=== PATIENT | female | born 1960 | race Caucasian/White ===

== ENCOUNTER → 2016-05-27 | Outpatient (CLI) | payer BC ==
[~2016-05-27] MED LIST: AMOX875T PO; ASPI-435 PO; ASPI81TA28 PO; B-COTAB18 PO; CETI10TA84 PO; EST1 PO; FLUO20CA35 PO; FLUO20CA36 PO; FLUO40CA8 PO; HYDR-5688 PO; OMEG10007 PO; XNX25 PO
--- NOTE | 2016-05-27 16:18 | MAMMOGRAPHY REPORT ---
THIS REPORT HAS BEEN AMENDED. BILATERAL DIGITAL SCREENING MAMMOGRAM TOMOSYNTHESIS WITH CAD: 05/27/2016 CLINICAL HISTORY: Routine screening. Patient has no complaints. TECHNIQUE: Breast tomosynthesis in addition to standard 2D mammography was performed. Current study was also evaluated with a Computer Aided Detection (CAD) system. COMPARISON: No prior exams were available for comparison. BREAST COMPOSITION: There are scattered areas of fibroglandular density in both breasts. FINDINGS: There are a few benign rim calcifications within the left breast. No suspicious mass, arc hitectural distortion or cluster of microcalcifications is seen. IMPRESSION: ACR BI-RADS CATEGORY 1: NEGATIVE There is no mammographic evidence of malignancy. A 1 year screening mammogram is recommended. The p atient will receive written notification of the results. Approximately 10% of breast cancers are not detected with mammography. A negative mammographic repor t should not delay biopsy if a clinically suggestive mass is present. Kathi Ca M.D. ay/:05/27/2016 16:06:22 Adapted Physical Education Specialist: Lilia SEQUEIRA(Da)([place]ush), [facility] letter sent: Normal 05/05 BI-RADS Code: ACR BI-RADS Category 1: Negative AMENDMENT: 06/03/2016 Kathi Ca M.D. Prior outside mammograms from [facility] dated 03/25/2011, 03/30/2012, 04/12/2013, 5 and 05/17/2015 became available for review. The rim calcifications in the left breast are stable compared to the outside exams. No new suspicious mass, architectural distortion, developing asymmet ryan or cluster of suspicious microcalcifications is seen. Recommend follow-up in 1 year for next r outine screening exam. Amended BI-RADS: ACR BI-RADS Category 2: Benign letter sent: Normal 05/05
== END | disposition home or self-care (01) ==
LOC: C.MAMM 09:28
PROVIDERS: ATTEND Family Medicine
DX: Z12.31 Encounter for screening mammogram for malignant neoplasm of breast (principal)

== ENCOUNTER 2016-12-24 06:46 | Observation (INO) | payer BC ==
[2016-12-24] VITALS (9 sets, daily range): BP systolic 129–157; BP diastolic 77–95; PULSE 64–80; TEMP 36.4–36.9; O2SAT 92–98; Ht 165.1 cm; Wt 78.5 kg
[~2016-12-24] VITALS: Ht 165.1 cm; Wt 78.5 kg
[~2016-12-24 06:46] MED LIST changes: -AMOX875T PO; +CEFUROXIME IV 1,500 MG in DEXTROSE 5% 100ML IV SCH; -FLUO20CA35 PO; -FLUO40CA8 PO; -HYDR-5688 PO; +LACTATED RINGER'S 1000ML 1,000 ML IV SCH
[2016-12-24] MEDS ORDERED: FLUO40CA8 PO (07:05)
[2016-12-24] MEDS ORDERED: FLUO20CA35 PO (07:05)
[2016-12-24] MEDS ORDERED: MIDAZOLAM HCL 1 MG/ML 2ML VIAL ONE (07:22)
[2016-12-24] MEDS ORDERED: PROPOFOL IV EMULSION 10 MG/ML 20 ML VIAL IV ONE (07:22)
[2016-12-24] MEDS ORDERED: LIDOCAINE HCL 2% 2 ML VIAL (20MG/ML) ONE (07:22)
[2016-12-24] MEDS ORDERED: SUCCINYLCHOLINE 100MG/5ML SYR IV ONE (07:22)
[2016-12-24] MEDS ORDERED: FENTANYL CITRATE INJ 50 MCG/1 ML 2 ML VIAL ONE ×3 (07:22→09:41)
[2016-12-24] MEDS ORDERED: ONDANSETRON INJ 2 MG/ML 2 ML VIAL ONE (07:22)
[2016-12-24] MEDS ORDERED: DEXAMETHASONE SOD INJ 4 MG/ML VIAL ONE (07:22)
[2016-12-24] MEDS ORDERED: CISATRACURIUM BESYLATE IV SOLN 2 MG/ML 10 ML VIAL ONE (07:22)
[2016-12-24] MEDS ORDERED: BUPIVACAINE 0.5 % 5 MG/1 ML MPF 30ML VIAL ONE (07:59)
--- NOTE | 2016-12-24 08:08 | History & Physical Bridge Note ---
H&P Re-Evaluation Bridge Note: I have examined the patient, reviewed the History & Physical and in the interval since the performance of the History & Physical I have noted the following changes of clinical significance: No changes noted
[2016-12-24] MEDS ORDERED: GLYCOPYRROLATE INJ 0.2 MG/ML VIAL ONE (08:53)
[2016-12-24] MEDS ORDERED: NEOSTIGMINE METHYLSULFATE 5 MG/5 ML SYR ONE (08:53)
[2016-12-24] MEDS ORDERED: NALOXONE HCL 0.4 MG/1 ML VIAL/CARP IV PRN (09:00)
[2016-12-24] MEDS ORDERED: ATROPINE SULFATE 0.1 MG/ML 5ML SYR IV PRN (09:00)
[2016-12-24] MEDS ORDERED: FENTANYL CITRATE INJ 50 MCG/1 ML 2 ML VIAL IV PRN (09:00)
[2016-12-24] MEDS ORDERED: ONDANSETRON INJ 2 MG/ML 2 ML VIAL IV PRN ×2 (09:00→09:30)
[2016-12-24] MEDS ORDERED: LABETALOL HCL IV 5 MG/ML 20ML IV PRN (09:00)
[2016-12-24] MEDS ORDERED: EpHEDrine SULFATE INJ 50 MG/ML AMP IV PRN (09:00)
[2016-12-24] MEDS ORDERED: PROMETHAZINE HCL INJ 12.5 MG in SODIUM CHLORIDE 0.9% 50ML 50 ML IV PRN ×2 (09:00→10:00)
[2016-12-24] MEDS ORDERED: FLUMAZENIL 0.1 MG/1 ML 10 ML VIAL IV PRN (09:00)
--- NOTE | 2016-12-24 09:20 | [facility] Operative Report ---
Operative Report Operative Date Dec 24, 2016. Pre-Operative Diagnosis Cholelithiasis, Biliary Colic Post-Operative Diagnosis same as pre-operative Procedure(s) Performed Laparoscopic Cholecystectomy Surgeon Dr. Delfino Gomez Analysis Mgr Surgeon(s) Fidel Sandy PA-C Estimated Blood Loss 10 cc Findings severe acute/ chronic cholecystitis, adhesions Specimens A: Gallbladder and contents Anesthesia gen Complication(s) None Disposition Recovery Room / PACU I attest to the content of the Intraoperative Record and any orders documented therein. Any exceptions are noted below.
[2016-12-24] MEDS ORDERED: HYDR-5688 PO (09:28)
[2016-12-24] MEDS ORDERED: AMOX875T PO (09:28)
[2016-12-24] MEDS ORDERED: HYDROmorphone INJ 0.5 MG/0.5 ML SYR IV PRN (09:30)
[2016-12-24] MEDS ORDERED: HYDROCODONE/ACETAMOPHEN 5/325MG TAB PO PRN (09:30)
[2016-12-24] MEDS ORDERED: PROMETHAZINE HCL INJ 25 MG in SODIUM CHLORIDE 0.9% 50ML 50 ML IV PRN (09:30)
[2016-12-24] MEDS ORDERED: HYDROmorphone INJ 1 MG/ML SYR IV PRN (09:30)
--- NOTE | 2016-12-24 09:31 | Discharge Instructions ---
Discharge Instructions Date of Service Dec 24, 2016. Admission Reason for Admission: Cholelithiasis, Biliary Colic Discharge Discharge Diagnosis / Problem: acute/chronic cholecystitis Discharge Goals Goal(s): Decrease discomfort, Improve function, Improve disease control Activity Recommendations Activity Limitations: as noted below Lifting Limitations: no more than 25 pounds Exercise/Sports Limitations: until after follow-up appointment May Resume Sexual Activity: when tolerated Shower/Bathe: tomorrow Driving or Machine Use: resume 3 days after discharge SPECIAL CARE INSTRUCTIONS: * Cover incisions and change daily for comfort/drainage. * may leave uncovered at sites with dermabond * May use ibuprofen for pain as tolerated. * Expect some swelling and bruising. Call your doctor if: * Temperature above 101 degrees * Pain not relieved by pain medicine ordered * There is increased drainage or redness from any incision * You have any unanswered questions or concerns [phone]. FOLLOW UP VISIT: If not already scheduled, please call the office for a follow-up visit. for next week- some suture removal OFFICE PHONE NUMBER: Dr. Gomez Office . Current Hospital Diet Patient's current hospital diet: Regular Diet Discharge Diet Recommended Diet: Regular Diet Procedures Procedures Performed: Laparoscopic Cholecystectomy Pending Studies Studies pending at discharge: no Medical Emergencies . Who to Call and When: Medical Emergencies: If at any time you feel your situation is an emergency, please call 911 immediately. . Non-Emergent Contact Non-Emergency issues call your: Primary Care Provider, Surgeon . "Provider Documentation" section prepared by Delfion Gomez. . VTE Core Measure Inpt VTE Proph given/why not?: SCD's
[2016-12-24] MEDS ORDERED: IV FLUIDS COMPLETED PRN (09:45)
--- NOTE | 2016-12-24 09:45 | OPERATIVE REPORT ---
DATE OF OPERATION: 12/24/2016 NAME OF OPERATION: Laparoscopic cholecystectomy with lysis of adhesions. STAFF SURGEON: Dr. Delfino Gomez. CASE MGR: Fidel Sandy PA-C ANESTHESIA: General. FINDINGS: The patient had significant adhesions to the gallbladder and a severely thickened gallbladder, all consistent with acute and chronic cholecystitis. DESCRIPTION OF PROCEDURE: The patient was brought into the operating room and placed on the operating table in the supine position. Her abdomen was prepped and draped in the usual fashion. Using 0.5% plain Marcaine, all incisions were anesthetized. Incision was made above the umbilicus, carrying dissection down to the fascia, placing a Veress needle, and producing pneumoperitoneum. An 11-mm port was placed at this level and under visualization, three 5-mm ports were placed, 1 cephalad and 2 laterally. The patient had significant adhesions to the gallbladder and liver. These were taken down and then the gallbladder retracted. It was severely thickened consistent with acute and chronic cholecystitis. Dissection was carried out at the alisson hepatis, identifying the cystic duct, which was very small. It was clipped and then transected. There was actually a small stone within the duct. Cystic artery was identified, clipped and transected, and then the gallbladder dissected away from the liver bed. There was severe chronic scar tissue in the posterior wall. Gallbladder was placed into an Endobag and then after appropriate hemostasis and irrigation, the Endobag was removed through the umbilical site. I did have to enlarge the fascial defect to remove the gallbladder. The fascia was then closed using interrupted 0 Vicryl suture, subcutaneous tissue reapproximated using 0 Vicryl suture, and then the skin reapproximated at the umbilicus and cephalad using 4-0 nylon suture. The other 2 sites closed using subcuticular 4-0 Monocryl and Dermabond. The patient was transferred to recovery room in stable condition. I attest to the content of the Intraoperative Record and any orders documented therein. Any exception s are noted below.
--- NOTE | 2016-12-24 10:41 | Anesthesiology Progress Note ---
Anesthesia Post Op Note Date & Time Dec 24, 2016 at 10:41 Vital Signs Pain Intensity: 4 Vital Signs Past 12 Hours Date Time Temp Pulse Resp B/P (MAP) Pulse Ox O2 Delivery O2 Flow Rate FiO2 12/24/16 10:05 36.6 71 16 147/91 98 Nasal Cannula 2 12/24/16 09:55 68 15 141/83 97 Nasal Cannula 2 12/24/16 09:45 68 16 147/88 100 Oxymask 10 12/24/16 09:35 73 16 143/87 100 Oxymask 10 12/24/16 09:27 37.1 89 16 132/104 99 Oxymask 10 12/24/16 07:09 36.7 80 16 141/77 (98) 98 Room Air Notes Mental Status: alert / awake / arousable, participated in evaluation Pt Amnestic to Procedure: Yes Nausea / Vomiting: adequately controlled Pain: adequately controlled Airway Patency, RR, SpO2: stable & adequate BP & HR: stable & adequate Hydration State: stable & adequate Anesthetic Complications: no major complications apparent
[2016-12-24] MEDS: HYDROCODONE/ACETAMOPHEN 5/325MG TAB PO PRN ×2 (11:02→23:10)
[2016-12-24] MEDS: LACTATED RINGER'S 1000ML 1,000 ML IV SCH ×2 (11:03→23:10)
[2016-12-24] MEDS: CEFUROXIME IV 1,500 MG in DEXTROSE 5% 100ML 100 ML IV SCH (15:39)
[2016-12-25] MEDS: CEFUROXIME IV 1,500 MG in DEXTROSE 5% 100ML 100 ML IV SCH ×2 (00:34→07:58)
[2016-12-25 03:13] VITALS: BP 127/72; PULSE 65; TEMP 36.9; O2SAT 95
[2016-12-25 06:17] LABS: HEMATOCRIT 34.9 % (37-47); MEAN CELL VOLUME 87.5 fL (80-100); MEAN CORPUSCULAR HEMOGLOBIN 29.6 pg (25-34); MEAN CORPUSCULAR HGB CONC 33.8 g/dl (32-36); PLATELET COUNT 310 K/uL (130-400); RED BLOOD COUNT 3.99 M/uL (4.2-5.4); WHITE BLOOD COUNT 9.24 K/uL (4.8-10.8)
--- NOTE | 2016-12-25 06:28 | Discharge Summary ---
Discharge Summary Date of Service Dec 25, 2016. Discharge Summary Admission Date: Dec 24, 2016 at 09:24 Discharge Date: Dec 25, 2016 Primary Diagnosis: acute cholecystitis Procedures: lap michelle Discharge Instructions Last Recorded Wt (Kilograms): 78.500 Allergies: Coded Allergies: Morphine (Verified Allergy, Unknown, SHORTNESS OF BREATH, 12/24/16) PER PATIENT, NORCO AND DILAUDID ARE OKAY Special Care: Call your doctor if: * Temperature above 101 degrees * Pain not relieved by pain medicine ordered * There is increased drainage or redness from any incision * You have any unanswered questions or concerns. Avoid all tobacco products. If you need help to stop smoking, call [place]'s FREE QUITLINE at . This is a free call. Admission Information Admission HPI: pt w/ recurrent RUQ pain, N/V- recent ER visit Hospital Course pt underwent Lap michelle 12/24/16- no acute problems postop d/c 12/25/16- f/u in office next week Total time spent on discharge = This includes examination of the patient, discharge planning, medication reconciliation, and communication with other providers.
[2016-12-25 06:51] LABS: BUN/CREATININE RATIO 15.7 (10-20); CALCIUM 8.9 mg/dl (8.5-10.1); CREATININE 0.8 mg/dl (0.60-1.20); POTASSIUM 3.7 mmol/L (3.5-5.1)
[2016-12-25 06:54] VITALS: BP 127/76; PULSE 71; TEMP 36.8; O2SAT 94
[2016-12-25 06:54] LABS: ALB/GLOB RATIO 0.9 (0.9-2)
[2016-12-25] MEDS ORDERED: FLUOXETINE HCL 20 MG CAP PO SCH (09:00)
--- NOTE | 2016-12-25 09:02 | Anesthesiology Progress Note ---
Anesthesia Post Op Note Date & Time Dec 25, 2016 at 09:01 Vital Signs Pain Intensity: 2 Vital Signs Past 12 Hours Date Time Temp Pulse Resp B/P (MAP) Pulse Ox O2 Delivery O2 Flow Rate FiO2 12/25/16 07:10 Room Air 12/25/16 06:54 36.8 71 19 127/76 (93) 94 Room Air 12/25/16 03:13 36.9 65 14 127/72 (90) 95 Room Air 12/25/16 00:30 Room Air 12/24/16 23:11 36.9 68 14 129/77 (94) 92 Room Air Notes Mental Status: alert / awake / arousable Pt Amnestic to Procedure: Yes Nausea / Vomiting: adequately controlled Pain: adequately controlled Airway Patency, RR, SpO2: stable & adequate BP & HR: stable & adequate Hydration State: stable & adequate
[2016-12-25 09:48] VITALS: BP 127/76; PULSE 71; TEMP 36.8; O2SAT 94
== END 2016-12-25 10:21 | disposition home or self-care (01) ==
LOC: C.ACU 06:46 → C.MSN 09:24 → ENRESERV 09:51
PROVIDERS: ADMIT Surgery; ATTEND Surgery
DX: K80.20 Calculus of gallbladder without cholecystitis without obstruction (principal); K80.50 Calculus of bile duct without cholangitis or cholecystitis without obstruction; F41.9 Anxiety disorder, unspecified; F32.9 Major depressive disorder, single episode, unspecified; E78.00 Pure hypercholesterolemia, unspecified; Z90.89 Acquired absence of other organs; Z90.710 Acquired absence of both cervix and uterus; Z98.51 Tubal ligation status; Z80.3 Family history of malignant neoplasm of breast; Z83.3 Family history of diabetes mellitus; Z82.49 Family history of ischemic heart disease and other diseases of the circulatory system; E78.5 Hyperlipidemia, unspecified

== ENCOUNTER 2017-12-02 12:59 | Emergency (ER) | payer BC, OTHER ==
[~2017-12-02] VITALS: Ht 162.6 cm; Wt 85.0 kg
[~2017-12-02 12:59] MED LIST changes: -ASPI-435 PO; -ASPI81TA28 PO; -CEFUROXIME IV 1,500 MG in DEXTROSE 5% 100ML IV SCH; -EST1 PO; +FLUO20CA35 PO; -FLUO20CA36 PO; +FLUO40CA8 PO; -LACTATED RINGER'S 1000ML 1,000 ML IV SCH; -XNX25 PO
[2017-12-02 13:02] VITALS: TEMP 36.9
[2017-12-02] MEDS ORDERED: SODIUM CHLORIDE 0.9% 1000ML 1,000 ML IV SCH (13:15)
--- NOTE | 2017-12-02 13:23 | EMERGENCY ROOM VISIT NOTE ---
History Report prepared by Marvin: Frantz Noel Under the Supervision of: Dr. Marilou Connell D.O. First contact with patient: 13:02 Chief Complaint: UNRESPONSIVE Stated Complaint: CONFUSION, UNRESPONSIVE History of Present Illness The patient is a 57 year old female who presents to the Emergency Room via private vehicle from [place] due to worsening stroke-like symptoms that began 3 and a half hours ago. Nurse states the patient felt like "deadweight" as they brought her out the car. Friend states when the patient arrived at her house 3 and a half hours ago and she noticed she wasn't her "normal" self. She states the patient was acting forgetful and repeating comments and a story she had dreamed about last night for an hour and a half. She states the patient then told her she felt like she was in a "fog". Friend states she then took the patient's blood pressure which was "160/90". She states she became concerned and decided to bring the patient to the ER. She states the patient's symptoms have worsened since coming to the ER. Friend adds the patient's is on the way. She adds the patient has been acting very confused and states she has never seen her like this before. Friend denies any facial droop, slurred speech , or motor deficits. Friend adds the patient has a history two suicide attempts via overdose. Past medical history includes depression which she sees a psychiatrist for. She denies the patient ever perforating before. Patient feels lightheaded, dizzy, weak, and nauseas. Patient denies ever feeling this weak before. Patient denies abdominal pain, chest pain, headaches, or recent sicknesses. Source of History: patient, EMS, nursing staff Onset: 3 and a half hours ago Position: head Quality: other (Stroke-like) Timing: worsening Modifying Factors (Relieving): other (None) Associated Symptoms: + nausea, + weakness, No headache, No chest pain, No abdominal pain Note: Positive dizziness and lightheadedness. Negative facial droop and slurred speech. Review of Systems See HPI for pertinent positives & negatives. A total of 10 systems reviewed and were otherwise negative. Past Medical & Surgical Medical Problems: (1) Acute cholecystitis Family History Patient reports no known family medical history. Social History Smoking Status: Never Smoker Marital Status: Housing Status: lives with family Current/Historical Medications Scheduled B-Complex Vitamins (Vitamin B Complex), 1 TAB PO DAILY Cetirizine (Zyrtec), 10 MG PO DAILY Cholecalciferol (Vitamin D3), 2,000 UNITS PO DAILY Fish Oil (Freeland-3), 1 CAP PO DAILY Fluoxetine (Prozac), 60 MG PO DAILY Allergies Coded Allergies: Morphine (Verified Allergy, Unknown, SHORTNESS OF BREATH, 12/24/16) PER PATIENT, NORCO AND DILAUDID ARE OKAY Time Last Known Well 0930 Stroke t-PA Criteria Reviewed Does NOT meet criteria for t-PA Reason t-PA Not Given Treatment not indicated Physical Exam Vital Signs Date Time Temp Pulse Resp B/P (MAP) Pulse Ox O2 Delivery O2 Flow Rate FiO2 12/02/17 17:59 65 16 134/76 96 Room Air 12/02/17 17:12 74 16 142/101 96 Room Air 12/02/17 15:30 71 16 148/96 98 Room Air 12/02/17 14:30 76 18 158/93 98 Room Air 12/02/17 13:35 100 Room Air 12/02/17 13:26 72 18 151/95 100 Room Air 12/02/17 13:04 81 12/02/17 13:02 36.9 83 18 160/109 100 Room Air Physical Exam GENERAL: alert, well appearing, well nourished, no distress, non-toxic EYE EXAM: normal conjunctiva, PERRL and EOM's grossly intact OROPHARYNX: no exudate, no erythema, lips, buccal mucosa, and tongue normal and mucous membranes are moist NECK: supple, no nuchal rigidity, no adenopathy, non-tender LUNGS: Clear to auscultation. Normal chest wall mechanics HEART: no murmurs, S1 normal and S2 normal ABDOMEN: abdomen soft, non-tender, normo-active bowel sounds, no masses, no rebound or guarding. BACK: Back is symmetrical on inspection and there is no deformity, no midline tenderness, no CVA tenderness. SKIN: no rashes and no bruising UPPER EXTREMITIES: upper extremities are grossly normal. LOWER EXTREMITIES: No pitting edema. NEURO EXAM: No strength/flaccid in lower and upper extremities. Opens eyes to voice and command. Nonverbal. Will nod and shake head to answer simple questions. Medical Decision & Procedures ER Provider Diagnostic Interpretation: Radiology results have been interpreted by the radiologist and reviewed by me. HEAD WITHOUT CONTRAST (CT) CT DOSE: 614.27 mGy.cm HISTORY: altered: stroke alert TECHNIQUE: Multiaxial CT images of the head were performed without the use of intravenous contrast. A dose lowering technique was utilized adhering to the principles of ALARA. Comparison: None. Findings: The paranasal sinuses and mastoid air cells are clear. The calvarium and skull base are intact. The ventricles and sulci are within normal limits. There is no mass, hematoma, midline shift, or acute infarct. 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 Minimal frontal atrophy. No acute intracranial hemorrhage. Impression: No acute intracranial abnormality. The above report was generated using voice recognition software. It may contain grammatical, syntax or spelling errors. Electronically signed by: Gatito Cox M.D. 12/02/2017 1:24 PM MR ANGIOGRAM OF THE BRAIN CLINICAL HISTORY: Subacute infarct. COMPARISON STUDY: MRI of the brain performed concurrently on 12/02/2017. TECHNIQUE: 3-D [id number] MR angiography of the intracranial circulation is performed. 3-D tumble views are created and assessed. IV contrast was not administered for this examination. FINDINGS: The internal carotid arteries are widely patent bilaterally, as are the anterior and middle cerebral arteries. The vertebrobasilar system and posterior cerebral arteries are widely patent. The vertebral arteries are codominant. There is no aneurysm, high-grade stenosis, or focal vessel cutoff seen throughout the intracranial circulation. IMPRESSION: Unremarkable MR angiogram of the brain. Electronically signed by: Lavell Santillan M.D. 12/02/2017 3:07 PM MRI OF THE BRAIN COMBO CLINICAL HISTORY: Subacute infarct. COMPARISON STUDY: CT of the brain dated 12/02/2017. TECHNIQUE: MRI of the brain was performed utilizing various T1 and T2-weighted sequences in the axial, sagittal, and coronal planes. Contrast-enhanced sequences were acquired following the administration of 8.5 cc of Gadavist. FINDINGS: Brain parenchyma: There is minimal subcortical and periventricular microangiopathic change. A chronic lacunar infarct is identified in the anterior limb of the the left internal capsule.. There is no hemorrhage or mass effect. There is no restricted diffusion to suggest acute ischemia. No enhancing mass lesion is identified on the postcontrast images. Fischer-white matter differentiation is preserved. No extra-axial fluid collection is seen. The cerebellar tonsils are normal in configuration. Ventricles, sulci, and cisterns: Normal in configuration. Pituitary and sella: Unremarkable. Intracranial vasculature: Normal flow voids are maintained at the skull base. Orbits: The bony orbits are grossly intact. Orbital contents are normal in appearance. Sinuses and mastoids: Trace mucosal thickening is seen in the left maxillary antrum. The remaining paranasal sinuses and the mastoid air cells are clear. Calvarium: Unremarkable. Soft tissues: There are 3 calcified sebaceous cysts noted in the scalp. Cervical cord: Partially visualized cervical spinal cord is normal in morphology and signal intensity. IMPRESSION: No acute intracranial abnormality. Electronically signed by: Lavell Santillan M.D. 12/02/2017 3:11 PM Laboratory Results 12/02/17 13:10 Red Blood Count 4.64, Mean Corpuscular Volume 84.7, Mean Corpuscular Hemoglobin 30.2, Mean Corpuscular Hemoglobin Concent 35.6, Mean Platelet Volume 9.7, Neutrophils (%) (Auto) 63.2, Lymphocytes (%) (Auto) 29.5, Monocytes (%) (Auto) 4.5, Eosinophils (%) (Auto) 2.1, Basophils (%) (Auto) 0.5, Neutrophils # (Auto) 3.69, Lymphocytes # (Auto) 1.72, Monocytes # (Auto) 0.26, Eosinophils # (Auto) 0.12, Basophils # (Auto) 0.03 12/02/17 13:10 Test 12/02/17 13:03 12/02/17 13:10 12/02/17 13:13 12/02/17 13:37 Bedside Glucose 85 mg/dl (70-90) White Blood Count 5.83 K/uL (4.8-10.8) Red Blood Count 4.64 M/uL (4.2-5.4) Hemoglobin 14.0 g/dL (12.0-16.0) Hematocrit 39.3 % (37-47) Mean Corpuscular Volume 84.7 fL (80-100) Mean Corpuscular Hemoglobin 30.2 pg (25-34) Mean Corpuscular Hemoglobin Concent 35.6 g/dl (32-36) Platelet Count 316 K/uL (130-400) Mean Platelet Volume 9.7 fL (7.4-10.4) Neutrophils (%) (Auto) 63.2 % Lymphocytes (%) (Auto) 29.5 % Monocytes (%) (Auto) 4.5 % Eosinophils (%) (Auto) 2.1 % Basophils (%) (Auto) 0.5 % Neutrophils # (Auto) 3.69 K/uL (1.4-6.5) Lymphocytes # (Auto) 1.72 K/uL (1.2-3.4) Monocytes # (Auto) 0.26 K/uL (0.11-0.59) Eosinophils # (Auto) 0.12 K/uL (0-0.5) Basophils # (Auto) 0.03 K/uL (0-0.2) RDW Standard Deviation 38.2 fL (36.4-46.3) RDW Coefficient of Variation 12.4 % (11.5-14.5) Immature Granulocyte % (Auto) 0.2 % Immature Granulocyte # (Auto) 0.01 K/uL (0.00-0.02) Prothrombin Time 10.3 SECONDS (9.0-12.0) Prothromb Time International Ratio 1.0 (0.9-1.1) Activated Partial Thromboplast Time 39.7 SECONDS (21.0-31.0) Partial Thromboplastin Ratio 1.5 Est Creatinine Clear Calc Drug Dose 74.3 ml/min Estimated GFR () 85.7 Estimated GFR (Non- 73.9 BUN/Creatinine Ratio 17.0 (10-20) Calcium Level 9.4 mg/dl (8.5-10.1) Magnesium Level 2.1 mg/dl (1.8-2.4) Total Bilirubin 0.7 mg/dl (0.2-1) Direct Bilirubin 0.1 mg/dl (0-0.2) Aspartate Amino Transf (AST/SGOT) 28 U/L (15-37) Alanine Aminotransferase (ALT/SGPT) 62 U/L (12-78) Alkaline Phosphatase 94 U/L (45-117) Total Creatine Kinase 62 U/L (26-192) Creatine Kinase MB < 1.0 ng/ml (0.5-3.6) Creatine Kinase MB Ratio (0-3.0) Troponin I < 0.015 ng/ml (0-0.045) Total Protein 7.7 gm/dl (6.4-8.2) Albumin 4.2 gm/dl (3.4-5.0) Thyroid Stimulating Hormone (TSH) 0.857 uIu/ml (0.300-4.500) Salicylates Level < 1.7 mg/dl (2.8-20) Acetaminophen Level < 2 ug/ml (10-30) Bedside Hemoglobin 13.6 g/dl (12.0-16.0) Bedside Hematocrit 40 % (37-47) Bedside Sodium 135 mEq/L (135-144) Bedside Potassium 4.0 mEq/L (3.3-5.0) Bedside Chloride 96 mEq/L (101-112) Bedside Total CO2 26 mEq/l (24-31) Anion Gap 19.0 mmol/L (16-25) Bedside Blood Urea Nitrogen 15 mg/dl (7-18) Bedside Creatinine 0.9 mg/dl (0.6-1.3) Bedside Glucose (other) 90 mg/dl (70-99) Bedside Ionized Calcium (Marisol) 1.20 mmol/l (1.12-1.32) Ethyl Alcohol mg/dL < 3.0 mg/dl (0-3) Test 12/02/17 15:19 Urine Color YELLOW Urine Appearance CLEAR (CLEAR) Urine pH 6.0 (4.5-7.5) Urine Specific [place] 1.011 (1.000-1.030) Urine Protein NEG (NEG) Urine Glucose (UA) NEG (NEG) Urine Ketones NEG (NEG) Urine Occult Blood NEG (NEG) Urine Nitrite NEG (NEG) Urine Bilirubin NEG (NEG) Urine Urobilinogen NEG (NEG) Urine Leukocyte Esterase NEG (NEG) Urine Opiates Screen NEG (NEG) Urine Methadone, Qualitative NEG (NEG) Urine Barbiturates NEG (NEG) Urine Phencyclidine (PCP) Level NEG (NEG) Ur Amphetamine/Methamphetamine NEG (NEG) MDMA (Ecstasy) Screen NEG (NEG) Urine Benzodiazepines Screen NEG (NEG) Urine Cocaine Metabolite NEG (NEG) Urine Marijuana (THC) NEG (NEG) Laboratory results per my review. Medications Administered Medications (Trade) Dose Ordered Sig/Elaine Route Start Time Stop Time Status Last Admin Dose Admin Aspirin (Ecotrin Tab) 325 mg NOW STAT PO 12/02/17 13:55 12/02/17 13:56 DC 12/02/17 13:55 325 MG ECG Per My Interpretation Indication: weakness Rate (beats per minute): 65 Rhythm: normal sinus Findings: no acute ischemic change, no ectopy, other (Normal axis/intervals) ED Course 1301: The patient was evaluated in room B1. A complete history and physical exam was performed. 1315: Sodium Chloride 1000 ml @ 50 mls/hr IV 1325: Tele-neurologist is going to examine the patient. 1334: I reevaluated the patient who shows no changes. I updated the family on the patient's findings. 1349: I reassessed the patient. She is wiggling her toes and moving her hands a little bit. 1355: Aspirin 325mg PO 1405: I reassessed the patient. She is moving her extremities. Patient denies an overdose last night or this morning. She denies noncompliance with medications. Daughter notes the patient had a similar episode 20 years where she got better and was discharged. Daughter also states that she talk to her mom earlier and that she seemed altered even prior to 930 when she went to the friend's house. 1635: Upon reevaluation, the patient is feeling better. I discussed the findings and the treatment plan with the patient. She verbalizes agreement and understanding. She was discharged home. Medical Decision Differential diagnosis: Etiologies such as metabolic, infection, hypo/hyperglycemia, electrolyte abnormalities, cardiac sources, intracerebral event, toxicologic, neurologic, as well as others were entertained. Patient presented an code stroke called by nursing staff initially. Patient does not have any lateralizing findings, however had no strength in any extremity. Patient was awake would open eyes to voice and on command but not and she could answer questions. Patient sent emergently for head CT which did not show any acute intracranial hemorrhage and consultation arranged with the tele-neurologist through [facility]. Additional labs sent after friend at bedside provided additional history regarding the patient's prior overdoses. Patient's labs here found to be reassuring. During the evaluation by the tele-neurologist , patient's symptoms slowly began to resolve and she regained some movement in her arms and legs, and was able to begin speaking. Patient was hemodynamically stable throughout, no severe hypertension noted. With some additional time and upon the recommendation of the neurologist patient also went for MRI and MRA which were reassuring. The hospitalist was contacted regarding additional evaluation. After they saw the patient they discussed the case with the neurologist and felt that given the patient's resolution of symptoms and reassuring MRI/MRA, the rest of her stroke evaluation can be completed as an outpatient. The hospitalist help to make arrangements for this and the patient and family were aware of this and in agreement with the plan. As a precaution given the patient's history I asked the psychiatric case operator to evaluate the patient as well. Patient continued denied any worsening depression or anxiety, SI or HI, or that this was a suicide attempt in any way. Patient here continued to improve and return to her baseline, was ambulatory with steady gait , moving all 4 extremities. Patient and family were made aware of all results, were in agreement with plan as well as follow-up which was outlined by the hospitalist. Patient was discharged in good condition. Medication Reconcilliation Current Medication List: was personally reviewed by me Blood Pressure Screening Patient's blood pressure: Elevated blood pressure Blood pressure disposition: Referred to PCP Consults Time Called: 1323 Consulting Physician: Dr. Lorne Wilson Neurologist Returned Call: 1324 I reviewed the patient's case with Dr. Pradhan. She states the patient does not sound like a TPA candidate at this time. She recommends the patient getting an MRI after a subacute finding in the left basal ganglia. Additional Consults: Time Called: 1353 Consulted Physician: Dr. Lorne Wilson Neurologist Returned Call: [phone] Additional Comments: I reviewed the patient's case with Dr. Pradhan. She recommends the patient get an MRI and MRA. She also recommends admitting the patient for additional workup. Time Called: 1432 Consulted Physician: Dr. Mireille FONSECA Returned Call: [phone] Additional Comments: I reviewed the patient's case with Dr. Kendrick. Time Called: 1550 Consulted Physician: Dr. Maggie FONSECA Returned Call: [phone] Additional comments: I discussed the patient's case with Dr. Serrano. He reviewed the patient's MRI and MRA and discussed the case with neurology. He feels the rest of stroke evaluation can be completed as an outpatient and does not feel like the patient needs admission. Impression Primary Impression: Altered mental status Additional Impressions: Generalized weakness Anxiety Critical Care I have personally spent 45 minutes of critical care time in the direct management of this patient. This includes bedside care, interpretation of diagnostic studies, and testing, discussion with consultants, patient, and family members, and other required patient management activities. This 45 minutes is in excess of all separately billable procedures. Scribe Attestation The scribe's documentation has been prepared under my direction and personally reviewed by me in its entirety. I confirm that the note above accurately reflects all work, treatment, procedures, and medical decision making performed by me. Departure Information Dispostion Home / Self-Care Referrals Nilam Alas M.D. (PCP) Forms HOME CARE DOCUMENTATION FORM, IMPORTANT VISIT INFORMATION, WORK / SCHOOL INSTRUCTIONS Patient Instructions My [facility] Additional Instructions Please keep the appointments for close outpatient follow-up as you were directed. Please continue your regular medications as prescribed. If you have any new or concerning symptoms, please return the emergency room. Stroke History Time Last Known Well Unknown Stroke t-PA Criteria Reviewed Does NOT meet criteria for t-PA Reason t-PA Not Given Treatment not indicated Problem Qualifiers Primary Impression: Altered mental status Altered mental status type: transient alteration of awareness Qualified Codes : R40.4 - Transient alteration of awareness
[2017-12-02 13:27] VITALS: Ht 162.6 cm; Wt 85.0 kg
[2017-12-02 13:28] LABS: ISTAT CREATININE 0.9 mg/dl (0.6-1.3); ISTAT IONIZED CALCIUM 1.2 mmol/l (1.12-1.32)
[2017-12-02] MEDS ORDERED: CHOL2000 PO (13:29)
[2017-12-02 13:34] LABS: BASO % 0.5 %; BASO ABS # 0.03 K/uL (0-0.2); EOS % 2.1 %; EOS ABS # 0.12 K/uL (0-0.5); HEMATOCRIT 39.3 % (37-47); IG# 0.01 K/uL (0.00-0.02); LYMPH % 29.5 %; LYMPH ABS # 1.72 K/uL (1.2-3.4); MEAN CELL VOLUME 84.7 fL (80-100); MEAN CORPUSCULAR HEMOGLOBIN 30.2 pg (25-34); MEAN CORPUSCULAR HGB CONC 35.6 g/dl (32-36); MEAN PLATELET VOLUME 9.7 fL (7.4-10.4); MONO % 4.5 %; MONO ABS # 0.26 K/uL (0.11-0.59); NEUT % 63.2 %; NEUT ABS # 3.69 K/uL (1.4-6.5); PLATELET COUNT 316 K/uL (130-400); RED CELL DISTRIBUTION WIDTH CV 12.4 % (11.5-14.5); RED CELL DISTRIBUTION WIDTH SD 38.2 fL (36.4-46.3); WHITE BLOOD COUNT 5.83 K/uL (4.8-10.8)
[2017-12-02 13:35] VITALS: O2SAT 100
[2017-12-02 13:39] LABS: PTT PATIENT 39.7 SECONDS (21.0-31.0)
[2017-12-02 13:53] LABS: ALBUMIN 4.2 gm/dl (3.4-5.0); ALKALINE PHOSPHATASE 94 U/L (45-117); ALT/SGPT 62 U/L (12-78); AST/SGOT 28 U/L (15-37); BLOOD UREA NITROGEN 15 mg/dl (7-18); CALCIUM 9.4 mg/dl (8.5-10.1); CARBON DIOXIDE 26 mmol/L (21-32); CKMB < 1.0 ng/ml (0.5-3.6); CREATININE 0.86 mg/dl (0.60-1.20); GLUCOSE 86 mg/dl (70-99); POTASSIUM 3.9 mmol/L (3.5-5.1); SODIUM 133 mmol/L (136-145); TOTAL PROTEIN 7.7 gm/dl (6.4-8.2)
[2017-12-02] MEDS ORDERED: ASPIRIN 325 MG ECTAB PO STA (13:55)
--- NOTE | 2017-12-02 15:08 | DIAGNOSTIC IMAGING REPORT ---
MR ANGIOGRAM OF THE BRAIN CLINICAL HISTORY: Subacute infarct. COMPARISON STUDY: MRI of the brain performed concurrently on 12/02/2017. TECHNIQUE: 3-D [id number] MR angiography of the intracranial circulation is performed. 3-D tumble views are created and assessed. IV contrast was not administered for this examination. FINDINGS: The internal carotid arteries are widely patent bilaterally, as are the anterior and middle cerebral arteries. The vertebrobasilar system and posterior cerebral arteries are widely patent. The vertebral arteries are codominant. There is no aneurysm, high-grade stenosis, or focal vessel cutoff seen throughout the intracranial circulation. IMPRESSION: Unremarkable MR angiogram of the brain. Electronically signed by: Lavell Santillan M.D. 12/02/2017 3:07 PM Dictated Date/Time: 12/02/2017 3:05 PM
--- NOTE | 2017-12-02 15:12 | DIAGNOSTIC IMAGING REPORT ---
MRI OF THE BRAIN COMBO CLINICAL HISTORY: Subacute infarct. COMPARISON STUDY: CT of the brain dated 12/02/2017. TECHNIQUE: MRI of the brain was performed utilizing various T1 and T2-weighted sequences in the axial, sagittal, and coronal planes. Contrast-enhanced sequences were acquired following the administration of 8.5 cc of Gadavist. FINDINGS: Brain parenchyma: There is minimal subcortical and periventricular microangiopathic change. A chronic lacunar infarct is identified in the anterior limb of the the left internal capsule.. There is no hemorrhage or mass effect. There is no restricted diffusion to suggest acute ischemia. No enhancing mass lesion is identified on the postcontrast images. Fischer-white matter differentiation is preserved. No extra-axial fluid collection is seen. The cerebellar tonsils are normal in configuration. Ventricles, sulci, and cisterns: Normal in configuration. Pituitary and sella: Unremarkable. Intracranial vasculature: Normal flow voids are maintained at the skull base. Orbits: The bony orbits are grossly intact. Orbital contents are normal in appearance. Sinuses and mastoids: Trace mucosal thickening is seen in the left maxillary antrum. The remaining paranasal sinuses and the mastoid air cells are clear. Calvarium: Unremarkable. Soft tissues: There are 3 calcified sebaceous cysts noted in the scalp. Cervical cord: Partially visualized cervical spinal cord is normal in morphology and signal intensity. IMPRESSION: No acute intracranial abnormality. Electronically signed by: Lavell Santillan M.D. 12/02/2017 3:11 PM Dictated Date/Time: 12/02/2017 3:07 PM
[2017-12-02] MEDS ORDERED: GADAVIST IV PRN (15:15)
--- NOTE | 2017-12-02 16:05 | Medical Consult ---
Consultation Date of Consultation: Dec 02, 2017. Attending Physician: Dr. Marilou Connell. Reason for Consultation: Unresponsiveness History of Present Illness 57 yo female presents to the ED with a history of unresponsiveness. Her friends are at her bedside and report her history as patient does not recall exactly what occurred. Patient arrived at her friend's house this morning around 9am. They report that patient had mentioned that she was foggy, and was not acting like herself. She was asking the same questions over and over again. Her friend's felt like it would be prudent to bring her to the hospital. Patient was able to walk to her car and her friend stated rest in the passenger seat, which the patient did throughout the whole car ride. Once they arrived to the Hospital from [place], patient was not responding. And appeared to be deadweight, a stroke alert was called and imaging was obtained which include a CT scan of head, MRI and MRA of brain which were negative for acute stroke. During the time patient arrive din the ER, she slowly regained consciousness. Intially she was able to answer questions, and shortly later, she began to move all of her extremities. Currently patient reports close to her normal self. Past Medical/Surgical History Medical Problems: (1) Altered mental status Status: Acute (2) Anxiety Status: Acute (3) Generalized weakness Status: Acute Family History Patient reports no known family medical history. no premature cardiac disease Social History Smoking Status: Never Smoker Marital Status: Housing Status: lives with family Allergies Coded Allergies: Morphine (Verified Allergy, Unknown, SHORTNESS OF BREATH, 12/24/16) PER PATIENT, NORCO AND DILAUDID ARE OKAY Current Inpatient Medications Current Inpatient Medications Medications (Trade) Dose Ordered Sig/Elaine Route Start Time Stop Time Status Last Admin Dose Admin Sodium Chloride 1,000 ml @ 50 mls/hr Q20H IV 12/02/17 13:15 01/01/18 13:14 Gadobutrol (Gadavist) 8.5 mmol UD PRN IV 12/02/17 15:15 12/06/17 15:14 Review of Systems Constitutional: No fever, No chills Eyes: No worsening of vision ENT: No hearing loss Respiratory: No cough Cardiovascular: No chest pain Abdomen: No pain Musculoskeletal: No joint pain Genitourinary - Female: No dysuria Neurologic: + weakness Psychiatric: No anhedonism Endocrine: No fatigue Hematologic / Lymphatic: No abnormal bleeding/bruising Integumentary: No rash Allergic / Immunologic: No environmental allergies Physical Exam Date Time Temp Pulse Resp B/P (MAP) Pulse Ox O2 Delivery O2 Flow Rate FiO2 12/02/17 15:30 71 16 148/96 98 Room Air 12/02/17 14:30 76 18 158/93 98 Room Air 12/02/17 13:35 100 Room Air 12/02/17 13:26 72 18 151/95 100 Room Air 12/02/17 13:04 81 12/02/17 13:02 36.9 83 18 160/109 100 Room Air General Appearance: WD/WN, no apparent distress Head: normocephalic Eyes: normal inspection, + pertinent finding (no nystagmus) ENT: normal ENT inspection Neck: supple, no adenopathy Respiratory/Chest: chest non-tender, lungs clear, normal breath sounds Cardiovascular: regular rate, rhythm, no edema Abdomen/GI: normal bowel sounds, non tender, soft Back: normal inspection Extremities/Musculoskelatal: normal inspection Neurologic/Psych: machine i cutter II-XII nml as tested, no motor/sensory deficits, alert, oriented x 3 Skin: normal color Lymphatic: no adenopathy Laboratory Results Last 24 Hours Test 12/02/17 13:03 12/02/17 13:10 12/02/17 13:13 12/02/17 13:37 Bedside Glucose 85 mg/dl White Blood Count 5.83 K/uL Red Blood Count 4.64 M/uL Hemoglobin 14.0 g/dL Hematocrit 39.3 % Mean Corpuscular Volume 84.7 fL Mean Corpuscular Hemoglobin 30.2 pg Mean Corpuscular Hemoglobin Concent 35.6 g/dl Platelet Count 316 K/uL Mean Platelet Volume 9.7 fL Neutrophils (%) (Auto) 63.2 % Lymphocytes (%) (Auto) 29.5 % Monocytes (%) (Auto) 4.5 % Eosinophils (%) (Auto) 2.1 % Basophils (%) (Auto) 0.5 % Neutrophils # (Auto) 3.69 K/uL Lymphocytes # (Auto) 1.72 K/uL Monocytes # (Auto) 0.26 K/uL Eosinophils # (Auto) 0.12 K/uL Basophils # (Auto) 0.03 K/uL RDW Standard Deviation 38.2 fL RDW Coefficient of Variation 12.4 % Immature Granulocyte % (Auto) 0.2 % Immature Granulocyte # (Auto) 0.01 K/uL Prothrombin Time 10.3 SECONDS Prothromb Time International Ratio 1.0 Activated Partial Thromboplast Time 39.7 SECONDS Partial Thromboplastin Ratio 1.5 Sodium Level 133 mmol/L Potassium Level 3.9 mmol/L Chloride Level 99 mmol/L Carbon Dioxide Level 26 mmol/L Anion Gap 8.0 mmol/L 19.0 mmol/L Blood Urea Nitrogen 15 mg/dl Creatinine 0.86 mg/dl Est Creatinine Clear Calc Drug Dose 74.3 ml/min Estimated GFR () 85.7 Estimated GFR (Non- 73.9 BUN/Creatinine Ratio 17.0 Random Glucose 86 mg/dl Calcium Level 9.4 mg/dl Magnesium Level 2.1 mg/dl Total Bilirubin 0.7 mg/dl Direct Bilirubin 0.1 mg/dl Aspartate Amino Transf (AST/SGOT) 28 U/L Alanine Aminotransferase (ALT/SGPT) 62 U/L Alkaline Phosphatase 94 U/L Total Creatine Kinase 62 U/L Creatine Kinase MB < 1.0 ng/ml Creatine Kinase MB Ratio Troponin I < 0.015 ng/ml Total Protein 7.7 gm/dl Albumin 4.2 gm/dl Thyroid Stimulating Hormone (TSH) 0.857 uIu/ml Salicylates Level < 1.7 mg/dl Acetaminophen Level < 2 ug/ml Bedside Hemoglobin 13.6 g/dl Bedside Hematocrit 40 % Bedside Sodium 135 mEq/L Bedside Potassium 4.0 mEq/L Bedside Chloride 96 mEq/L Bedside Total CO2 26 mEq/l Bedside Blood Urea Nitrogen 15 mg/dl Bedside Creatinine 0.9 mg/dl Bedside Glucose (other) 90 mg/dl Bedside Ionized Calcium (Marisol) 1.20 mmol/l Ethyl Alcohol mg/dL < 3.0 mg/dl Test 12/02/17 15:19 Urine Color YELLOW Urine Appearance CLEAR Urine pH 6.0 Urine Specific Melvin 1.011 Urine Protein NEG Urine Glucose (UA) NEG Urine Ketones NEG Urine Occult Blood NEG Urine Nitrite NEG Urine Bilirubin NEG Urine Urobilinogen NEG Urine Leukocyte Esterase NEG Urine Opiates Screen NEG Urine Methadone, Qualitative NEG Urine Barbiturates NEG Urine Phencyclidine (PCP) Level NEG Ur Amphetamine/Methamphetamine NEG MDMA (Ecstasy) Screen NEG Urine Benzodiazepines Screen NEG Urine Cocaine Metabolite NEG Urine Marijuana (THC) NEG Assessment & Plan (Altered mental status) Unresponsiveness in a 57 yo female with negative CT head , negative MRI of brain and negative MRA brain. Patient appears to be back to baseline. Concern that this may be psychogenic. Her history does not appear to be a stroke and imaging rules this out. History does not appear to be seizure either. Patient may require outpatient workup for possible syncope which would include Holter monitor and carotid ultrasound. Neurology does not believe that patient will require an EEG , but will defer to PCP. I informed patient and her friends about this plan and they agree with outpatient workup Given her history of suicide attempts in the past, ER will order a psych consult prior to discharge home. I informed ER provider about this. And as noted above, I had discussed case with Neurologist components engineer, Dr. Cee.
[2017-12-02 17:59] VITALS: BP 134/76; PULSE 65; O2SAT 96
== END 2017-12-02 17:59 | disposition home or self-care (01) ==
LOC: C.EDB 12:59
DX: R40.4 Transient alteration of awareness (principal); R53.1 Weakness; F41.9 Anxiety disorder, unspecified; Z88.5 Allergy status to narcotic agent; Z91.5 Personal history of self-harm

== ENCOUNTER → 2017-12-07 | Outpatient (CLI) | payer OTHER ==
[~2017-12-07] MED LIST changes: +CHOL2000 PO; -FLUO40CA8 PO
[2017-12-07 18:53] LABS: ALBUMIN 4.1 gm/dl (3.4-5.0); TOTAL PROTEIN 7.6 gm/dl (6.4-8.2)
== END | disposition home or self-care (01) ==
LOC: C.LABMFLN 12:08
PROVIDERS: ATTEND Family Medicine
DX: R53.83 Other fatigue (principal); E78.00 Pure hypercholesterolemia, unspecified; G45.9 Transient cerebral ischemic attack, unspecified

== ENCOUNTER → 2017-12-15 | Outpatient (CLI) | payer OTHER ==
--- NOTE | 2017-12-15 17:19 | EEG Procedure Note ---
EEG Procedure Note Date of Service Dec 15, 2017. Start / End Times Start Time: 1311 End Time: [address] Alas History 57-year-old with history of episode of altered mental status and memory issues, question seizure Home Medication List Scheduled B-Complex Vitamins (Vitamin B Complex), 1 TAB PO DAILY Cetirizine (Zyrtec), 10 MG PO DAILY Cholecalciferol (Vitamin D3), 2,000 UNITS PO DAILY Fish Oil (Crossnore-3), 1 CAP PO DAILY Fluoxetine (Prozac), 60 MG PO DAILY Description This is a 21 electrode EEG with a single channel dedicated to limited EKG. The electrodes were placed in accordance with the International 10-20 system. Interpretation The predominant background activity consists of a somewhat irregular 11 hertz rhythm of up to 40 microvolts in amplitude seen symmetrically distributed over the posterior head regions bilaterally. This activity attenuated with eye opening and other alerting procedures. A mild amount of muscle and movement artifact activity contaminate the recording but did not hinder interpretation to any significant degree. Photic stimulation produced no driving response and no abnormalities were seen. Hyperventilation was not performed on this EEG. Throughout the recording, no focal abnormalities, potentially epileptogenic discharges, or abnormal slow activity was seen. Patient did not into the drowsy state or deeper stages of sleep. In summary this study is normal during the wakeful state and no focal abnormalities or potentially epileptogenic discharges were seen. Clinical Correlation The absence of potentially epileptogenic activity does not exclude a seizure disorder since inter ictally EEGs can be normal and clinical correlation is required. The
== END | disposition home or self-care (01) ==
LOC: C.NEUR 12:57
PROVIDERS: ATTEND Family Medicine
DX: R41.82 Altered mental status, unspecified (principal)